=== PATIENT | female | born 1990 | race African-American/Black ===

== ENCOUNTER 2021-08-03 02:37 | Emergency (ER) | payer MEDICAID, OTHER ==
[~2021-08-03] VITALS: Ht 165.1 cm; Wt 73.0 kg
[~2021-08-03 02:37] MED LIST: TAMIFLU; [UNRECOGNIZED DRUG - OTHER]
[2021-08-03] MEDS ORDERED: ACETAMINOPHEN 325MG TABLET PO ONE (03:45)
[2021-08-03 04:00] LABS: CLARITY URINE CLOUDY (CLEAR); COLOR URINE YELLOW (YELLOW); KETONES URINE TRACE (NEGATIVE); LEUKOCYTE ESTERASE URINE 3+ (NEGATIVE); NITRITE URINE NEGATIVE (NEGATIVE); OCCULT BLOOD URINE NEGATIVE (NEGATIVE); PH URINE 5.5 (4.5-8.0); PROTEIN URINE 2+ (NEGATIVE); SPECIFIC GRAVITY URINE 1.032 (1.005-1.030); UROBILINOGEN URINE 0.2 E.U./dL (0.2-1.0)
[2021-08-03] MEDS ORDERED: NITROFURANTOIN 100MG M/M CAPSULE PO ONE (04:45)
[2021-08-03] MEDS ORDERED: PNV1TABL76 MT (05:21)
[2021-08-03] MEDS ORDERED: TOPUD MT (05:21)
[2021-08-03] MEDS ORDERED: NITR-87 MT (05:26)
[2021-08-03 05:41] VITALS: BP 117/57
== END 2021-08-03 05:50 | disposition home or self-care (01) ==
LOC: ER 02:37
DX: O99.891 Other specified diseases and conditions complicating pregnancy (principal); S10.83XA Contusion of other specified part of neck, initial encounter; Y07.03 Male partner, perpetrator of maltreatment and neglect; G89.11 Acute pain due to trauma; R10.84 Generalized abdominal pain; R07.89 Other chest pain; O23.41 Unspecified infection of urinary tract in pregnancy, first trimester; N39.0 Urinary tract infection, site not specified; O09.31 Supervision of pregnancy with insufficient antenatal care, first trimester; Z3A.00 Weeks of gestation of pregnancy not specified; Y04.2XXA Assault by strike against or bumped into by another person, initial encounter; Y93.89 Activity, other specified; Y92.810 Car as the place of occurrence of the external cause
CPT/HCPCS: 36415; 81003; 81025; 84702; 99284